=== PATIENT | male | born 1970 | race Caucasian/White ===

== ENCOUNTER 2017-09-22 15:16 | Emergency (ER) | payer OTHER ==
[~2017-09-22] VITALS: Ht 152.4 cm; Wt 61.2 kg
[~2017-09-22 15:16] MED LIST: ACET325; CRUTCH3 USE; CYCL10 PO; ERYT.5TO RIGHTEYE; HYDACE5 PO; HYDACE7.5 PO; IBUP200; IBUP600; IBUP600 PO; IBUP800 PO; LORA1 PO; META800 PO; NAPR500 PO; NAPR550 PO; OXYACE5T PO; PENVK500 PO; PRED10 PO; PROACE100; RXHYDACE PO
[2017-09-22] MEDS ORDERED: Keflex500 MG PO (16:23)
[2017-09-22] MEDS ORDERED: Bactrim Ds Tab1 EACH PO (16:23)
== END 2017-09-22 16:27 | disposition home or self-care (01) ==
LOC: ER 15:16
DX: L02.01 Cutaneous abscess of face (principal); Z79.2 Long term (current) use of antibiotics; F17.200 Nicotine dependence, unspecified, uncomplicated
CPT/HCPCS: 10060; 99283

== ENCOUNTER 2018-08-01 04:51 | Emergency (ER) | payer OTHER ==
[~2018-08-01] VITALS: Ht 152.4 cm; Wt 62.6 kg
[~2018-08-01 04:51] MED LIST changes: +Bactrim Ds Tab1 EACH PO; +Keflex500 MG PO
[2018-08-01 05:55] LABS: BASOPHILS ABSOLUTE AUTO 0.07 K/mm3 (0.00-0.23); BASOPHILS PERCENT AUTO 1 % (0-2); EOSINOPHILS ABSOLUTE AUTO 0.33 K/mm3 (0.00-0.68); EOSINOPHILS PERCENT AUTO 4 % (0-6); Hematocrit 43.1 % (37.0-53.0); Hemoglobin 14.5 g/dL (13.5-17.5); IMMATURE GRAN ABSOLUTE AUTO 0.03 K/mm3 (0.00-0.10); IMMATURE GRAN PERCENT AUTO 0 % (0-1); LYMPHOCYTES ABSOLUTE AUTO 2.35 K/mm3 (0.84-5.20); LYMPHOCYTES PERCENT AUTO 25 % (21-46); MONOCYTES ABSOLUTE AUTO 0.57 K/mm3 (0.16-1.47); MONOCYTES PERCENT AUTO 6 % (4-13); Mean Corpuscular HGB 31.9 pg (26.0-34.0); Mean Corpuscular HGB Conc 33.6 g/dL (31.5-36.5); Mean Corpuscular Volume 95 fL (80-100); Mean Platelet Volume 9.6 fL (9.1-12.4); NEUTROPHILS ABSOLUTE AUTO 6.19 K/mm3 (1.96-9.15); NEUTROPHILS PERCENT AUTO 65 % (41-73); Platelet Count 280 K/mm3 (150-400); RDW Coefficient Variation 13.9 % (11.7-14.2); RDW Standard Deviation 48.8 fL (35.1-46.3); Red Blood Cell Count 4.55 M/mm3 (4.30-5.90); White Blood Cell Count 9.54 K/mm3 (4.00-11.30)
[2018-08-01 06:19] LABS: Alanine Aminotransfer (ALT/SGP 30 U/L (12-78); Albumin, Blood 3.1 g/dL (3.4-5.0); Albumin/Globulin Ratio 0.9 (0.8-1.8); Alk Phos 109 U/L (50-136); Anion Gap 7 mmol/L (6-16); Aspartate Aminotrans (AST/SGOT 18 U/L (12-37); Bilirubin, Total 0.1 mg/dL (0.1-1.0); Blood Urea Nitrogen 18 mg/dL (8-24); Bun/Creatinine Ratio 18.7 (12.0-20.0); CO2, Blood 27 mmol/L (21-32); Calcium, Blood 8.5 mg/dL (8.5-10.1); Chloride, Blood 109 mmol/L (98-108); Creatinine, Blood 0.96 mg/dL (0.60-1.20); Globulin, Blood 3.4 g/dL (2.2-4.0); Glomerular Filtration Rate >60 (60-); Glucose, Blood 125 mg/dL (70-99); Sodium, Blood 143 mmol/L (136-145); Total Protein, Blood 6.5 g/dL (6.4-8.2)
== END 2018-08-01 07:05 | disposition home or self-care (01) ==
LOC: ER 04:51
PROVIDERS: Emergency Medicine
DX: K40.90 Unilateral inguinal hernia, without obstruction or gangrene, not specified as recurrent (principal); Z79.899 Other long term (current) drug therapy; F17.200 Nicotine dependence, unspecified, uncomplicated
CPT/HCPCS: 36415; 74177; 80053; 83605; 85025; 96374; 96375; 99284-25; J1170; J2405; Q9967

== ENCOUNTER 2023-01-11 22:24 | Emergency (ER) | payer OTHER ==
[~2023-01-11] VITALS: Ht 152.4 cm; Wt 72.6 kg
[2023-01-11 23:00] VITALS: BP 120/80
== END 2023-01-11 23:22 | disposition home or self-care (01) ==
LOC: ER 22:24
DX: K40.90 Unilateral inguinal hernia, without obstruction or gangrene, not specified as recurrent (principal); F17.210 Nicotine dependence, cigarettes, uncomplicated
CPT/HCPCS: 99284

== ENCOUNTER 2023-03-23 12:58 | Emergency (ER) | payer OTHER ==
[~2023-03-23] VITALS: Ht 152.4 cm; Wt 68.0 kg
[2023-03-23 16:00] VITALS: BP 127/70
[2023-03-23] MEDS ORDERED: BUPRENORPHIN-N1 EAC1 SL (16:48)
[2023-03-23] MEDS ORDERED: NARCAN4 M1 (16:48)
== END 2023-03-23 17:20 | disposition home or self-care (01) ==
LOC: ER 12:58
DX: T40.411A Poisoning by fentanyl or fentanyl analogs, accidental (unintentional), initial encounter (principal); F11.90 Opioid use, unspecified, uncomplicated; F17.210 Nicotine dependence, cigarettes, uncomplicated
CPT/HCPCS: 93005; 93010; 99284-25

== ENCOUNTER 2024-04-27 12:19 | Day surgery (SDC) | payer OTHER ==
[~2024-04-27] VITALS: Ht 154.9 cm; Wt 58.2 kg
[~2024-04-27 12:19] MED LIST changes: +BUPRENORPHIN-N1 EAC1 SL; +Balanced Salt Epinephrine Irrigation Solution 500 mL IR SCH; +Lidocaine HCl/Pf 1% 5 ML VIAL XX SCH; +Moxifloxacin HCL 0.5 MG/0.1 ML 0.4MLSYR RIGHTEYE SCH; +NARCAN4 M1; +NS 500 ML IV ONE; +PHENYLEPHRINE\\TROPICAMIDE\\TETRACAINE OPHTHALMIC DILATING SOLN RIGHTEYE PRN; +Povidone-Iodine 450 DROP/30 ML Solution ONE; +Povidone-Iodine 450 DROP/30 ML Solution RIGHTEYE SCH; +Tetracaine HCl/Pf 0.5% Opth Soln 4 ml ONE; +Triamcinolone Inj Susp 40 MG / ML 1ML Vial INJ SCH; +Triamcinolone Inj Susp 40 MG / ML 1ML Vial ONE
[2024-04-27] MEDS ORDERED: FentaNYL Citrate 50 MCG/ML 2 ML Injection ONE (12:40)
[2024-04-27] MEDS ORDERED: Midazolam HCl 1MG / ML 2ML Vial ONE (12:40)
[2024-04-27] MEDS ORDERED: NS 500 ML IV ONE (12:53)
[2024-04-27] MEDS ORDERED: Dexmedetomidine HCL 200 MCG / 2 ML ONE (13:01)
--- NOTE | 2024-04-27 14:15 | NUR ---
04/27/24 1415 JUAN MCHUGH PT ARRIVED IN STEP DOWN SLEEPING, AROUSABLE TO TOUCH AND VERBALLY RESPONDS. IS SLEEPING AND NOT WANTING TO OPEN EYES. PT RESPONDS TO STIMULI AND DENIES PAIN, NAUSEA, TOLERATES IV REMOVAL WELL. UP TO CHAIR WITH SBA. PER REPORT, PT WAS MEDICATED WITH 2MG VERSED AND PRECEDEX IN PRE OP D/T NERVES
[2024-04-27 14:17] VITALS: BP 96/60
== END 2024-04-27 14:13 | disposition home or self-care (01) ==
LOC: ORSCSDS 12:19
PROVIDERS: Ophthalmology
PROC: 08RJ3JZ Replacement of Right Lens with Synthetic Substitute, Percutaneous Approach (ICD-10-PCS; principal; 2024-04-27 13:30)
DX: H25.811 Combined forms of age-related cataract, right eye (principal); H21.81 Floppy iris syndrome; Z96.1 Presence of intraocular lens; Z87.891 Personal history of nicotine dependence
CPT/HCPCS: J2250; J3010; J3301; J7040; V2632

== ENCOUNTER 2024-07-19 13:24 | Day surgery (SDC) | payer OTHER ==
[~2024-07-19] VITALS: Ht 154.9 cm; Wt 58.6 kg
[~2024-07-19 13:24] MED LIST changes: +Moxifloxacin HCL 0.5 MG/0.1 ML 0.4MLSYR LEFTEYE SCH; -Moxifloxacin HCL 0.5 MG/0.1 ML 0.4MLSYR RIGHTEYE SCH; -NS 500 ML IV ONE; +PHENYLEPHRINE\\TROPICAMIDE\\TETRACAINE OPHTHALMIC DILATING SOLN LEFTEYE PRN; -PHENYLEPHRINE\\TROPICAMIDE\\TETRACAINE OPHTHALMIC DILATING SOLN RIGHTEYE PRN; +Povidone-Iodine 450 DROP/30 ML Solution LEFTEYE SCH; -Povidone-Iodine 450 DROP/30 ML Solution RIGHTEYE SCH; +Tropicamide 1% Opth Soln 15 ML BTL ONE
[2024-07-19] MEDS ORDERED: Diazepam 2 MG Tab ONE (13:54)
[2024-07-19] MEDS ORDERED: Diazepam 5 MG Tab ONE (13:55)
--- NOTE | 2024-07-19 14:18 | NUR ---
07/19/24 1418 Danielle Dacosta VALIUM GIVEN [address] CRUZ
[2024-07-19] MEDS ORDERED: FentaNYL Citrate 50 MCG/ML 2 ML Injection ONE (14:46)
[2024-07-19] MEDS ORDERED: Midazolam HCl 1MG / ML 2ML Vial ONE (15:00)
[2024-07-19] MEDS ORDERED: Dexmedetomidine HCL 200 MCG / 2 ML ONE (15:27)
[2024-07-19] MEDS ORDERED: propofoL 0 ML IV ONE (15:39)
[2024-07-19 16:02] VITALS: BP 100/64
== END 2024-07-19 16:29 | disposition home or self-care (01) ==
LOC: ORSCSDS 13:24
PROVIDERS: Ophthalmology
PROC: 08PK3JZ Removal of Synthetic Substitute from Left Lens, Percutaneous Approach (ICD-10-PCS; principal; 2024-07-19 14:30)
PROC: 08RK3JZ Replacement of Left Lens with Synthetic Substitute, Percutaneous Approach (ICD-10-PCS; principal; 2024-07-19 14:30)
DX: T85.29XA Other mechanical complication of intraocular lens, initial encounter (principal); F17.210 Nicotine dependence, cigarettes, uncomplicated; K21.9 Gastro-esophageal reflux disease without esophagitis; D68.51 Activated protein C resistance
CPT/HCPCS: A9270; J2250; J2704; J3010; J3301; V2632

== ENCOUNTER 2024-07-27 13:09 | Day surgery (SDC) | payer OTHER ==
[~2024-07-27] VITALS: Ht 154.9 cm; Wt 59.6 kg
[~2024-07-27 13:09] MED LIST changes: -Moxifloxacin HCL 0.5 MG/0.1 ML 0.4MLSYR LEFTEYE SCH; +Moxifloxacin HCL 0.5 MG/0.1 ML 0.4MLSYR RIGHTEYE SCH; -PHENYLEPHRINE\\TROPICAMIDE\\TETRACAINE OPHTHALMIC DILATING SOLN LEFTEYE PRN; +PHENYLEPHRINE\\TROPICAMIDE\\TETRACAINE OPHTHALMIC DILATING SOLN RIGHTEYE PRN; -Povidone-Iodine 450 DROP/30 ML Solution LEFTEYE SCH; +Povidone-Iodine 450 DROP/30 ML Solution RIGHTEYE SCH; -Tropicamide 1% Opth Soln 15 ML BTL ONE
[2024-07-27] MEDS ORDERED: propofoL 20 ML IV ONE (13:31)
[2024-07-27] MEDS ORDERED: FentaNYL Citrate 50 MCG/ML 2 ML Injection ONE ×2 (13:40→15:02)
[2024-07-27] MEDS ORDERED: Lactated Ringer's 1,000 ML IV ONE (13:48)
--- NOTE | 2024-07-27 15:14 | NUR ---
07/27/24 1514 Slava Redmond FENTANYL 25MCG IV GIVEN AT 1513 FOR 7/10 RIGHT EYE PAIN
[2024-07-27] MEDS ORDERED: Acetaminophen 500 MG Tab ONE (15:21)
[2024-07-27 15:22] VITALS: BP 135/86
== END 2024-07-27 15:37 | disposition home or self-care (01) ==
LOC: ORSCSDS 13:09
PROVIDERS: Ophthalmology
PROC: 08RJ3JZ Replacement of Right Lens with Synthetic Substitute, Percutaneous Approach (ICD-10-PCS; principal; 2024-07-27 14:30)
PROC: 08PJ3JZ Removal of Synthetic Substitute from Right Lens, Percutaneous Approach (ICD-10-PCS; principal; 2024-07-27 14:30)
DX: T85.29XA Other mechanical complication of intraocular lens, initial encounter (principal)
CPT/HCPCS: A9270; J2704; J3010; J3301; J7120; V2632